=== PATIENT | male | born 1985 | race Hispanic/Latino ===

== ENCOUNTER 2020-12-04 15:54 | Emergency (ER) | payer SELFPAY ==
[2020-12-04] MEDS ORDERED: Boostrix 0.5 ML (Tdap) VIAL ONE (16:51)
[2020-12-04] MEDS ORDERED: Lidocaine 1% w/Epinephrine 1:100K 20 ML VIAL ONE ×2 (17:20)
[2020-12-04] MEDS ORDERED: Bacitracin 1 PK ONE (18:13)
[2020-12-04] MEDS ORDERED: Ibuprofen 800 MG TAB ONE (18:48)
== END 2020-12-04 18:50 | disposition home or self-care (01) ==
LOC: ERS 15:54
DX: S61.411A Laceration without foreign body of right hand, initial encounter (principal); Z87.891 Personal history of nicotine dependence; W45.8XXA Other foreign body or object entering through skin, initial encounter
CPT/HCPCS: 12001; 90471; 90715

== ENCOUNTER 2020-12-14 11:35 | Emergency (ER) | payer SELFPAY | END 2020-12-14 13:25 | disposition home or self-care (01) | LOC: ERS 11:35 | DX: S61.511D Laceration without foreign body of right wrist, subsequent encounter (principal); Z87.891 Personal history of nicotine dependence; X58.XXXD Exposure to other specified factors, subsequent encounter ==